=== PATIENT | female | born 1950 ===

== ENCOUNTER 2016-07-20 13:51 | Observation (INO) | payer MEDICARE, OTHER ==
--- NOTE | ~2016-07-20 | HP ---
History And Physical [facility] [id number] [place]. [address] NAME: JUAN DAVID BARILLAS : 50 STATUS : ADM Rolanda PAT#: [id number] AGE: 66 ADM/REG DATE : 07/20/16 MR#: [id number] REPORT SERV DATE: 07/21/16 DICTATED BY: ELDA ALDANA DATE: 07/21/16 REPORT STATUS : Draft TRANSCRIBED BY: NIKOLE DATE: 07/21/16 DATE OF ADMISSION: 07/20/2016 CHIEF COMPLAINT: Chest pain and palpitations. HISTORY OF PRESENT ILLNESS: A pleasant 66-year-old white female with no known history of CAD, who states that she awoke on 07/20/2016 around 0400 with a burning sensation in her chest and "a bit of a hurt" indicating her mid chest. She took her Prilosec early, she was able to go back to sleep. She describes substernal chest discomfort as an "ache." It did not radiate elsewhere. She describes associated shortness of breath. Denies nausea, diaphoresis, dizziness, or belching. She states her chest discomfort is worse with a deep breath. She did make an appointment with Dr. Good yesterday, she was seen, an EKG was performed, and she reports that she was told it is "not your heart," but she was sent here via ambulance from his office. She states her heart rate was 130s in the ambulance but had diminished to 110 on arrival here. The patient denies any personal history of myocardial infarction, stroke, DVT, or pulmonary embolus. The patient denies any exertional component to her chest pain and no pattern. Denies any stressful confrontational argumentative issues. The patient denies any recent fever or chills. Describes occasional palpitations on and off for several years. Consumes iced tea throughout the day and one cup of coffee. Denies syncopal episodes. No PND or orthopnea. PAST MEDICAL HISTORY: 1. Borderline dyslipidemic. 2. Denies hypertension or diabetes. 3. GERD. 4. Positive family history for early CAD. PAST SURGICAL HISTORY: 1. A left total knee in 02/2016. 2. Cholecystectomy. 3. Tonsillectomy. 4. Squamous cell removed from the left forearm. SOCIAL HISTORY: She is with two children. She is retired from an office job. She is active around her house, although she does not have a structured exercise routine. Denies tobacco or illicits. Rarely consumes wine. FAMILY HISTORY: Mother of a heart failure at the age of 62 with no reported history of heart attack or stroke. A brother with CAD and CABG in his 60s, remains alive in his 70s. REVIEW OF SYSTEMS: A 14-point review of systems performed, significant for HPI including reports of murmur which is audible on exam with no echocardiogram. Otherwise, a complete review of systems obtained and negative. History And Physical [address] [place]. [address] NAME: JUAN DAVID BARILLAS : 50 STATUS : ADM Rolanda PAT#: [id number] AGE: 66 ADM/REG DATE : 07/20/16 MR#: [id number] REPORT SERV DATE: 07/21/16 DICTATED BY: ELDA ALDANA DATE: 07/21/16 REPORT STATUS : Draft TRANSCRIBED BY: NIKOLE DATE: 07/21/16 ALLERGIES: TO PENICILLIN, RASH AND AZITHROMYCIN, FACIAL SWELLING. MEDICATIONS: Home medicines, on Mobic 7.5 mg nightly and Prilosec 20 mg daily. PHYSICAL EXAMINATION: BLOOD PRESSURE: Bilateral blood pressures on arrival, right 170/72. Left 162/69. This morning, 119/56. PULSE: 72. RESPIRATORY RATE: 17. TEMPERATURE: 98.4. O2 saturation 97% on room air. HEIGHT: 5 feet 6 inches. WEIGHT: 175 pounds. BMI 28. GENERAL: Cooperative, in no apparent distress. HEENT: Pupils 2 mm, sclera nonicteric. Nares patent. Moist mucous membranes. No xanthelasma. NECK: Trachea midline, no thyromegaly. No JVD. No bruits. LYMPH: No cervical lymphadenopathy. No supraclavicular lymphadenopathy. RESPIRATORY: Unlabored respirations. Breath sounds clear bilaterally to posterior auscultation. No wheezes or rhonchi. CARDIOVASCULAR: Regular rate. A 2/6 murmur at the left sternal border base and trace ankle edema. Pulses 2+ bilaterally. ABDOMEN: Soft, nontender, nondistended, normal bowel sounds auscultated throughout. No organomegaly. SKIN: Warm, dry extremities. No pallor, or cyanosis. PSYCHIATRIC: Appropriate affect. Alert, oriented x3. LABORATORY DATA: Troponin less than 0.02 x 3. Potassium 3.6, BUN 13, creatinine 0.73, glucose 151, and magnesium 2.0. WBC 10.4, hemoglobin 13.7, hematocrit 42.1, and platelet count 236,000. EKG: Sinus rhythm. 2000 Holter: Sinus rhythm with minimal ventricular ectopy. ASSESSMENT AND PLAN: 1. Chest pain. The patient has been observed in the CPOU overnight to rule out myocardial infarction with serial enzymes and serial EKGs and held n.p.o. We will proceed with MPI today. The patient will be discharged home if low risk, no ischemia. If anything suggestive of ischemia, Cardiology referral will be initiated. Otherwise, the patient will be asked to follow up with PCP in one to two weeks with all studies being sent to that office. 2. Murmur, check echocardiogram. 3. Palpitations, check TSH and a 48-hour Holter at discharge with new patient appointment with Cardiology in 3 to 4 weeks. 4. Gastroesophageal reflux disease, continue Prilosec. CHERYL/NIKOLE [facility] History And Physical [address] [address] NAME: JUAN DAVID BARILLAS : 50 STATUS : ADM Rolanda PAT#: [id number] AGE: 66 ADM/REG DATE : 07/20/16 MR#: [id number] REPORT SERV DATE: 07/21/16 DICTATED BY: ELDA ALDANA DATE: 07/21/16 REPORT STATUS : Draft TRANSCRIBED BY: MODL DATE: 07/21/16 IGOR Aldana, AIRPLANE TECHNICIAN-BC / [id number] CC: IGOR Butler, AIRPLANE TECHNICIAN-BC Ariel Good D.O.
[2016-07-20 13:21] LABS: BASOPHILS 0.2 %; BASOPHILS ABSOLUTE 0.02 10/3/uL (0.0-0.16); EOSINOPHILS 1.4 %; EOSINOPHILS ABSOLUTE 0.15 10/3/uL (0.0-0.53); HEMATOCRIT 42.1 % (36.0-48.0); HEMOGLOBIN 13.7 g/dL (12.0-16.0); IMMATURE GRANULOCYTES 0.1 %; IMMATURE GRANULOCYTES ABSOLUTE 0.01 10/3/uL (0.0-0.11); LYMPHOCYTES 10.2 %; LYMPHOCYTES ABSOLUTE 1.06 10/3/uL (0.67-4.30); MANUAL DIFF NO %; MEAN CORPUS HGB CONC 32.5 g/dL (32.0-36.0); MEAN CORPUSCULAR HEMOGLOB 28.5 pg (26.0-34.0); MEAN CORPUSCULAR VOLUME 87.5 fL (80-100); MONOCYTES 7.5 %; MONOCYTES ABSOLUTE 0.78 10/3/uL (0.21-1.20); NEUTROPHILS 80.6 %; NEUTROPHILS ABSOLUTE 8.35 10/3/uL (2.02-8.40); PLATELET COUNT 236 10/3/uL (150-400); RBC DISTRIBUTION WIDTH 14.8 % (12.0-16.0); RED CELL COUNT 4.81 10/6/uL (4.0-5.6); WHITE BLOOD CELLS 10.4 10/3/uL (4.5-10.5)
[2016-07-20 13:30] LABS: INTERNATIONAL NORMAL RATI 1.1 UNITS (-); PARTIAL THROMBO TIME 26.5 SEC (22.5-37.2)
[2016-07-20 13:31] LABS: PROTIME (NOT ORD) 13.6 SEC (12.0-14.5)
[2016-07-20 13:44] LABS: BUN (BLOOD UREA NITROGEN) 13 MG/DL (6-23); CHEST PAIN PROFILE TAT 0 Hrs 27 Mins; CHLORIDE, SERUM 108 MMOL/L (96-112); CO2 (CARBON DIOXIDE) 25 MMOL/L (24-34); CREATININE 0.73 MG/DL (0.55-1.02); GFR AFRICAN AMERICAN 99 ML/MIN (>=60); GFR NON AFRICAN AMERICAN 86 ML/MIN (>=60); GLUCOSE, SERUM 151 MG/DL (60-99); POTASSIUM, SERUM 3.6 MMOL/L (3.5-5.3); SODIUM, SERUM 143 MMOL/L (135-148); TROPONIN I <0.02 NG/ML (<0.05)
[~2016-07-20 13:51] MED LIST: C5 PO; PCET PO; PR12.5 PO; PRILO PO
[2016-07-20] MEDS ORDERED: PRILO PO (18:23)
[2016-07-20] MEDS ORDERED: MOBIC7.5 PO (18:23)
[2016-07-21 05:41] LABS: TROPONIN I <0.02 NG/ML (<0.05)
[2016-07-21 09:59] LABS: FREE T4 1.17 NG/DL (0.76-1.46)
== END 2016-07-21 14:55 | disposition home or self-care (01) ==
LOC: ER 13:51 → CDU1 18:08 → CDU2 18:49
PROVIDERS: Clinical Nurse Specialist; Hospitalist
DX: R07.9 Chest pain, unspecified (principal); R00.2 Palpitations; K21.9 Gastro-esophageal reflux disease without esophagitis; Z90.89 Acquired absence of other organs; Z90.49 Acquired absence of other specified parts of digestive tract; Z96.652 Presence of left artificial knee joint; Z88.0 Allergy status to penicillin; Z88.8 Allergy status to other drugs, medicaments and biological substances; Z88.1 Allergy status to other antibiotic agents
CPT/HCPCS: 71010; 71275; 78452; 80048; 83735; 84439; 84443; 84484; 85025; 85610; 85730; 93005; 93017; 93225; 93306; 96374; 96375; 99285; A9270-GY; A9502; G0378; J2405; Q9967